=== PATIENT | female | born 1985 | race Caucasian/White ===

== ENCOUNTER 2025-04-07 06:17 | Day surgery (SDC) | payer OTHER, SELFPAY | END 2025-04-07 14:13 | disposition home or self-care (01) | LOC: GI 06:17 | PROVIDERS: ATTENDING PHYSICIAN Internal Medicine Gastroenterology; FAMILY PHYSICIAN Family Medicine | DX: R12 Heartburn (principal); K44.9 Diaphragmatic hernia without obstruction or gangrene; K31.89 Other diseases of stomach and duodenum; K29.50 Unspecified chronic gastritis without bleeding | CPT/HCPCS: 43239; 88305; 88342 ==

== ENCOUNTER → 2025-04-29 09:50 | Outpatient (REF) | payer OTHER, SELFPAY | LOC: HWWDC 09:50 | PROVIDERS: ATTENDING PHYSICIAN Family Medicine | DX: Z12.31 Encounter for screening mammogram for malignant neoplasm of breast (principal) | CPT/HCPCS: 77063; 77067 ==